=== PATIENT | male | born 1980 | race Caucasian/White ===

== ENCOUNTER 2017-03-22 14:37 | Outpatient (CLI) | payer OTHER ==
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
== END 2017-03-22 14:38 | disposition home or self-care (01) ==
LOC: NAV RAD 14:37
PROVIDERS: ATTEND Family Medicine
DX: Z02.71 Encounter for disability determination (principal); M54.5 Low back pain; M47.896 Other spondylosis, lumbar region; Z87.828 Personal history of other (healed) physical injury and trauma
CPT/HCPCS: 72100